=== PATIENT | female | born 1975 | race Caucasian/White ===

== ENCOUNTER 2017-12-05 19:53 | Emergency (ER) | payer OTHER ==
[~2017-12-05] VITALS: Ht 167.6 cm; Wt 103.0 kg
[2017-12-05 19:56] VITALS: BP 146/92; PULSE 74; RESP 18; TEMP 98.1; O2SAT 100
[2017-12-05] MEDS ORDERED: LEVO75TA3 PO (20:25)
--- NOTE | 2017-12-05 20:28 | PD ---
HPI Chief Complaint: Dizziness Time Seen by Provider: 20:05 Travel History International Travel<30 days: No Contact w/Intl Traveler<30days: No Traveled to known affect area: No History of Present Illness HPI 42yo F with PMH of hypothyroidism here with multiple complaints. Pt said she started feeling generalized weakness at 2pm today. This is associated with feelings of hot and cold as well as tingling throughout the whole body. + Nausea. She said she feels sick but cant elaborate. Denies any fever, chest pain, vomiting, abdominal pain, focal weakness or numbness. Pt has had similar episode before and went to her primary care and they could not find anything wrong. Also went to an ER and was found to have UTI and given levaquin and said symptoms improve. Denies any dysuria, hematuria but always urinates a lot. PFSH Past Medical History ?: Not LMP: 12-05-17 Social History Tobacco Use: No Allergies-Medications (Allergen,Severity, Reaction): Coded Allergies: Penicillins (Verified Allergy, Severe, Anaphylaxis, 12/05/17) Reported Meds & Prescriptions Reported Meds & Active Scripts Active Hydroxyzine HCl 25 Mg Tab 25 Mg PO TID PRN Reported Levothyroxine (Levothyroxine Sodium) 75 Mcg Tab 75 Mcg PO DAILY Review of Systems Except as stated in HPI: all other systems reviewed are Neg Physical Exam Narrative GENERAL: 42yo F anxious appearing. SKIN: Focused skin assessment warm/dry. HEAD: Atraumatic. Normocephalic. EYES: Pupils equal and round. No scleral icterus. No injection or drainage. ENT: No nasal bleeding or discharge. Mucous membranes pink and moist. NECK: Trachea midline. No JVD. CARDIOVASCULAR: Regular rate and rhythm. No murmur appreciated. RESPIRATORY: No accessory muscle use. Clear to auscultation. Breath sounds equal bilaterally. GASTROINTESTINAL: Abdomen soft, non-tender, nondistended. MUSCULOSKELETAL: No obvious deformities. No clubbing. No cyanosis. No edema. NEUROLOGICAL: Awake and alert. No obvious cranial nerve deficits. Motor grossly within normal limits in all extremities. Sensation intact. Normal speech. PSYCHIATRIC: Anxious. Data Data Last Documented VS Vital Signs Date Time Temp Pulse Resp B/P (MAP) Pulse Ox O2 Delivery O2 Flow Rate FiO2 12/05/17 23:14 12/05/17 23:00 65 16 99 Room Air 12/05/17 19:56 98.1 Orders Orders Electrocardiogram (12/05/17 ) Complete Blood Count With Diff (12/05/17 20:16) Basic Metabolic Panel (Bmp) (12/05/17 20:16) Thyroid Stimulating Hormone (12/05/17 20:16) Urinalysis - C+S If Indicated (12/05/17 20:16) Orthostatic Blood Pressure (12/05/17 20:28) Ondansetron Odt (Zofran Odt) (12/05/17 20:30) Ed Urine Pregnancytest Poc (12/05/17 20:28) Free T3 (12/05/17 21:12) Lorazepam (Ativan) (12/05/17 22:00) Ed Discharge Order (12/05/17 22:55) Labs Laboratory Tests Test 12/05/17 20:00 12/05/17 20:15 Urine Color YELLOW Urine Turbidity CLEAR Urine pH 6.0 Urine Specific [place] LESS/EQUAL 1.005 Urine Protein NEG mg/dL Urine Glucose (UA) NEG mg/dL Urine Ketones NEG mg/dL Urine Occult Blood TRACE Urine Nitrite NEG Urine Bilirubin NEG Urine Urobilinogen 0.2 MG/DL Urine Leukocyte Esterase NEG Urine Squamous Epithelial Cells 0-5 /hpf Microscopic Urinalysis Comment CULT NOT INDICATED White Blood Count 5.5 TH/MM3 Red Blood Count 4.59 MIL/MM3 Hemoglobin 13.4 GM/DL Hematocrit 39.8 % Mean Corpuscular Volume 86.8 FL Mean Corpuscular Hemoglobin 29.3 PG Mean Corpuscular Hemoglobin Concent 33.7 % Red Cell Distribution Width 13.3 % Platelet Count 300 TH/MM3 Mean Platelet Volume 7.7 FL Neutrophils (%) (Auto) 73.5 % Lymphocytes (%) (Auto) 17.8 % Monocytes (%) (Auto) 6.5 % Eosinophils (%) (Auto) 1.5 % Basophils (%) (Auto) 0.7 % Neutrophils # (Auto) 4.0 TH/MM3 Lymphocytes # (Auto) 1.0 TH/MM3 Monocytes # (Auto) 0.4 TH/MM3 Eosinophils # (Auto) 0.1 TH/MM3 Basophils # (Auto) 0.0 TH/MM3 CBC Comment DIFF FINAL Differential Comment Blood Urea Nitrogen 8 MG/DL Creatinine 0.78 MG/DL Random Glucose 100 MG/DL Calcium Level 8.5 MG/DL Sodium Level 136 MEQ/L Potassium Level 3.8 MEQ/L Chloride Level 105 MEQ/L Carbon Dioxide Level 22.2 MEQ/L Anion Gap 9 MEQ/L Estimat Glomerular Filtration Rate 82 ML/MIN Thyroid Stimulating Hormone 3rd Gen 4.020 uIU/ML [facility] Medical Decision Making Medical Screen Exam Complete: Yes Emergency Medical Condition: Yes Interpretation(s) EKG: NSR 77bpm. LAD. No ST segment elevation or depression. TWI III. Differential Diagnosis Anxiety vs. hyperthyroidism vs. dehydration vs. electrolyte abnormality Narrative Course 42yo F with multiple complaints that sounds like anxiety. 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 Labs reviewed, no leukocytosis. H/H normal. TSH mildly elevated at 4.02. Free T3 sent. UA negative. Urine negative. Pt said eating ice helps and now said she is willing to take a low dose of ativan. Pt given 0.5mg PO ativan and said she does feel better. Requesting prescription for something for anxiety. Return precautions given. Diagnosis Primary Impression: Anxiety Patient Instructions: General Instructions Departure Forms: Tests/Procedures Additional Instructions: Please follow up with your primary care physician to follow up with the free T3 as well as further evaluation as needed. Return to the ED if symptoms worsen. Med/Other Pt SpecificInfo: Prescription(s) given Scripts Hydroxyzine HCl (Hydroxyzine HCl) 25 Mg Tab 25 MG PO TID Y for ANXIETY, #6 TAB 0 Refills Prov: Regina Granger DO 12/05/17 Disposition: 01 DISCHARGE HOME Condition: Stable Regnia Granger DO Dec 05, 2017 20:28
[2017-12-05] MEDS ORDERED: ONDANSETRON ODT 4 MG TAB PO ONE (20:30)
[2017-12-05 20:35] VITALS: BP 120/76; PULSE 78; RESP 16; O2SAT 99
[2017-12-05 20:42] LABS: BASOPHIL % 0.7 % (0.0-2.0); EOSINOPHIL # 0.1 TH/MM3 (0-0.4); EOSINOPHIL % 1.5 % (0.0-4.0); HEMATOCRIT 39.8 % (35.0-46.0); HEMOGLOBIN 13.4 GM/DL (11.6-15.3); LYMPH % 17.8 % (9.0-44.0); MEAN CELL VOLUME 86.8 FL (80.0-100.0); MEAN CORPUSCULAR HEMOGLOBIN 29.3 PG (27.0-34.0); MEAN CORPUSCULAR HGB CONC 33.7 % (32.0-36.0); MEAN PLATELET VOLUME 7.7 FL (7.0-11.0); MONO % 6.5 % (0.0-8.0); MONOCYTE # 0.4 TH/MM3 (0-0.9); NEUT % 73.5 % (16.0-70.0); PLATELET COUNT 300 TH/MM3 (150-450); RED BLOOD COUNT 4.59 MIL/MM3 (4.00-5.30); RED CELL DISTRIBUTION WIDTH 13.3 % (11.6-17.2); WHITE BLOOD COUNT 5.5 TH/MM3 (4.0-11.0)
[2017-12-05 20:43] LABS: BILIRUBIN, URINE NEG (NEG); BLOOD, URINE TRACE (NEG); GLUCOSE,URINE NEG (NEG); KETONE, URINE NEG (NEG); NITRITE,URINE NEG (NEG); URINE COLOR YELLOW (YELLW/STRAW); URINE LEUKOCYTE ESTERASE NEG (NEG)
[2017-12-05 20:50] LABS: SQUAMOUS EPITHELIAL CELL URINE 0-5 /hpf (0-5)
[2017-12-05 20:57] LABS: BICARBONATE 22.2 MEQ/L (21.0-32.0); CALCIUM 8.5 MG/DL (8.5-10.1)
[2017-12-05 21:00] VITALS: BP_SYST 119; BP_SYST 124; BP_SYST 127; BP_DIAS 72; BP_DIAS 77; BP_DIAS 78; RESP 16
[2017-12-05 21:01] LABS: CREATININE 0.78 MG/DL (0.50-1.00)
[2017-12-05 21:05] VITALS: BP 124/78; PULSE 74; RESP 16; O2SAT 99
[2017-12-05] MEDS ORDERED: LORazepam 0.5 MG TAB PO ONE (22:00)
[2017-12-05 23:00] VITALS: BP 115/73; PULSE 65; RESP 16; O2SAT 99
[2017-12-05] MEDS ORDERED: HYDR-3133 PO (23:07)
--- NOTE | 2017-12-06 18:14 | EKG ---
Date Performed: 12/05/2017 Time Performed: 20:23:07 PTAGE: 42 years EKG: Sinus rhythm NORMAL ECG NO PREVIOUS TRACING DOCTOR: Keerthi Arias Interpretating Date/Time 12/06/2017 18:11:18
== END 2017-12-05 23:14 | disposition home or self-care (01) ==
LOC: PHED 19:53
DX: F41.9 Anxiety disorder, unspecified (principal); R53.1 Weakness; R11.0 Nausea; E03.9 Hypothyroidism, unspecified; Z79.899 Other long term (current) drug therapy; Z88.0 Allergy status to penicillin
CPT/HCPCS: 80048; 81001; 84443; 84481; 84703; 85025; 93005; 99284